=== PATIENT | male | born 1945 | race Caucasian/White ===

== ENCOUNTER 2016-03-06 12:19 | Emergency (ER) | payer OTHER ==
[2016-03-06] MEDS ORDERED: DILAUDID IM ONE (13:11)
--- NOTE | 2016-03-06 13:22 | PROVIDER DOCUMENTATION ---
HPI-Musculoskeletal Pain/Inj - GENERAL Chief Complaint: Extremity Injury Stated Complaint: FALL Time Seen by Provider: 03/06/16 13:07 Source: patient - HX OF PRESENT ILLNESS-MUSKULOSKELTAL Nature of Presenting Problem: 70 y/o WM BIB EMS c/o right ankle pain after stepping off a step wrong, twisting his ankle. Was not able to ambulate afterwards. Pain worse with movement and baring weight. denies hitting head or loc. Quality of Pain: reports: aching Severity in ED: moderate Onset/Duration: just prior to arrival Timing: still present, constant Modifying Factors: improves with: nothing Any recent injury?: Yes Locality of Occurance: Home Similar Symptoms Previously?: No Recently seen or treated by another doctor?: No Review of Systems - Adult - REVIEW OF SYSTEMS - ADULT Constitutional: reports: no symptoms reported. denies: chills, fever, fatique Eyes: reports: no symptoms reported. denies: blurred vision, double vision, eye pain Ears, Nose, Mouth & Throat: reports: no symptoms reported. denies: ear pain, nose pain, throat pain Cardiovascular: reports: no symptoms reported. denies: chest pain, palpitations Respiratory: reports: no symptoms reported. denies: cough, shortness of breath , wheezing Gastrointestinal: reports: no symptoms reported. denies: abdominal pain, diarrhea, nausea, vomiting Genitourinary: reports: no symptoms reported. denies: dysuria, discharge, frequency, incontinence Musculoskeletal: reports: see HPI, joint pain, joint swelling, muscle aches. denies: bone pain, back pain Integumentary: reports: no symptoms reported. denies: rash Neurological: reports: no symptoms reported. denies: headache/migraines Psychiatric: reports: no symptoms reported Endocrine: reports: no symptoms reported Hematologic/Lymphatic: reports: no symptoms reported Allergic/Immunologic: reports: no symptoms reported All Other Systems: Reviewed and Negative Past History - Adult - PAST MEDICAL HISTORY-ADULT Review of Records: reports: Old Records Reviewed, Nursing Assessment Review, Medications Reviewed Major Childhood Illnesses: reports: denies history Cardiovascular: reports: denies history Respiratory: reports: denies history Gastrointestinal: reports: denies history Genitourinary: reports: denies history Musculoskeletal: reports: denies history Neurological: reports: denies history Endocrine/Immune: reports: denies history Other Conditions: reports: denies history - FAMILY HISTORY Family History: reviewed, not pertinent Physical Exam-Injury Related - Physical Exam-Injury Related Initial Vital Signs Reviewed: Yes General Appearance: appears well, alert, no apparent distress Eyes: PERRL/EOMI, pink conjunctivae Head, Ears, Nose, Mouth & Throat: normocephalic/atraumatic, moist mucous membranes Neck: non-tender, full range of motion, supple, normal inspection Respiratory: chest non-tender, lungs clear, normal breath sounds, no pleuratic chest pain, no respiratory distress, no accessory muscle use. negative: respiratory distress, decreased breath sounds, accessory muscle use, crackles, rales, rhonchi, stridor, wheezing Cardiovascular: normal peripheral pulses, regular rate, rhythm, no edema, no gallop, no JVD, no murmur Peripheral Pulses: dorsalis-pedis (R): 2+, dorsalis-pedis (L): 2+ Lymphatic: no adenopathy Extremity: other (right ankle: joint is swollen and tender, not able to dorsi or plantar flex secondary to pain, but can flex all toes. Cap refill < 2 seconds , no knee pain.) Integumentary: normal color, warm/dry Neurologic: grossly normal, no motor/sensory deficits Psych/Mental Status: AL, normal mood/affect, normal thought content, normal thought process, oriented x 3 - Glascow Coma Score Best Eye Response (Adger): (4) open spontaneously Best Verbal Response (Alejandra): (5) oriented Best Motor Response (Alejandra): (6) obeys commands Progress - PLAN OF CARE/RESULTS Progress/Plan/Lab Results: Vital Signs Temp Pulse Resp BP Pulse Ox 03/06/16 12:44 97.6 F 75 16 175/100 98 Orders Category Date Time Status OCL Splint DIRECTED Care 03/06/16 13:16 Active ANKLE COMPLETE RIGHT [RAD] Stat Exams 03/06/16 12:47 Taken Hydromorphone [Dilaudid] Med 03/06/16 13:11 Discontinued 1 mg IM NOW ONE - XRAY 1 XRAY: Right XRAY Study: Ankle Impression: Abnormal (unstable bimalleolar fx per Dr. Benitez, radiology) Departure - Departure Time of Disposition Order: 13:22 DIAGNOSIS: Closed bimalleolar fracture Qualifiers: Encounter type: initial encounter Laterality: right Qualified Code(s): S82.841A - Displaced bimalleolar fracture of right lower leg, initial encounter for closed fracture Disposition: HOME 01 Certified Medical Emergency: Emergent Condition: Stable Additional Instructions: It is important you see the orthopedic this week, Dr. Soria at [facility] ED Follow Up Instructions: You have been treated by a care provider in the Emergency Department. These instructions are being provided to you so you can have an understanding of how to care for yourself upon discharge. Upon discharge from the Emergency Department, you are responsible for making arrangements for follow-up care by a physician of your choice. Take all prescribed medications as directed. Return to the Emergency Department immediately for any new or worsening symptoms. You may call the Physician Referral phone number at [phone] to obtain a list of Physicians who are taking new patients. Prescriptions: Cyclobenzaprine [Flexeril] 10 mg PO TID #20 tablet Hydrocodone/APAP 7.5 mg/325 mg [Andes-7.5] 1 each PO Q6H PRN PRN #20 tablet PRN Reason: Pain Referrals: Balbina Soria MD [STAFF PHYSICIAN] - Attestation - Physician/ Mid-level Attestation Patient care was provided by Mid-level provider (ROUTE SPECIALIST/PA):: Yes Mid-level provider:: Parris Coe Mid-level documentation review:: The Mid-level provider documentation, treatment plan and medical decision making was reviewed by the physician who agrees with all treatment and medical decision making by the P.
--- NOTE | 2016-03-06 14:11 | Diag Imaging Result Document ---
PROCEDURE NAME: ANKLE COMPLETE RIGHT - 03/06/2016 RIGHT ANKLE, THREE VIEWS: FINDINGS: There is a fracture of the distal fibula and the medial malleolus. There is subluxation of the plafond medially with respect to the talar dome. IMPRESSION: Unstable ankle fracture.
[2016-03-06 14:13] VITALS: BP 186/92
== END 2016-03-06 14:13 | disposition home or self-care (01) ==
LOC: ED 12:19
DX: S82.841A Displaced bimalleolar fracture of right lower leg, initial encounter for closed fracture (principal); M25.571 Pain in right ankle and joints of right foot; M25.471 Effusion, right ankle; M79.1 Myalgia; Z79.899 Other long term (current) drug therapy; X58.XXXA Exposure to other specified factors, initial encounter